=== PATIENT | female | born 1980 | race Caucasian/White ===

== ENCOUNTER 2018-04-10 00:32 | Emergency (ER) | payer OTHER, SELFPAY ==
--- NOTE | 2018-04-10 00:01 | US_ITS ---
STUDY: ULTRASOUND TRANSVAGINAL CLINICAL: Female, 37 years old. BLEEDING TECHNIQUE: Transvaginal COMPARISON: CT April 10, 2018 FINDINGS: Enlarged uterus measuring 10.6 x 8.3 x 4.2 cm. There is a 6.6 x 5.1 x 5.9 cm right uterine fibroid. Endometrium measuring 2.2 cm. There is nabothian cyst. Right ovary, measuring 4.0 x 3.4 x 2.0 cm. There is a 1.9 x 2.0 x 1.7 cm right ovarian simple appearing cyst. Normal left ovary, measuring 2.8 x 2.6 x 1.5 cm. There are multiple follicles without a dominant cyst. There is no free fluid in the pelvis. Polycystic ovary disease: No. US/Transvaginal Non- IMPRESSION: There is an enlarged fibroid uterus. There is a thickened endometrium. There is a right ovarian cyst. Electronically Signed: Palmira Owens MD at 9:36 EDT , Service support ,
--- NOTE | 2018-04-10 00:32 | DT_ITS ---
This patient was seen during an EMR downtime April 07, 2018 - April 14, 2018. This patient may have a combination of paper and electronic documentation or all paper documentation. All documentation is viewable within the e-chart portion of [employer] for each patient visit.
--- NOTE | 2018-04-10 01:20 | CT_ITS ---
STUDY: CT ABDOMEN AND PELVIS WITHOUT CONTRAST REASON FOR EXAM: Female, 37 years old. RLQ PAIN,NAUSEA,HEAVY BLEEDING WITH CLOTS PRIOR CHOLECYSTECTOMY RADIATION DOSAGE (If Supplied By Facility): CTDIvol = ( ) mGy, DLP = ( ) mGycm TECHNIQUE: Transaxial images were obtained from the dome of the diaphragm to the symphysis pubis without oral contrast, and without intravenous contrast. Sagittal and coronal images were reconstructed. Individualized dose optimization techniques were used for this CT. COMPARISON: None. FINDINGS: The visualized lung bases are unremarkable. The visualized portions of the heart are within normal limits. There is decreased attenuation of the liver consistent with steatosis. There are surgical clips in the gallbladder fossa consistent with a prior cholecystectomy. Normal spleen. Normal pancreas. Normal bilateral adrenal glands. Normal right kidney. Normal left kidney. Normal visualized stomach. Normal small intestine. Normal colon. The appendix is visualized and appears normal. Normal abdominal aorta. Normal inferior vena cava. Normal retroperitoneum. Normal urinary bladder. Normal abdominal wall. Normal osseous structures. CT/Abdomen/Pelvis without Cont IMPRESSION: There is decreased attenuation of the liver consistent with steatosis. Electronically Signed: Lorraine Gibson MD at 6:18 EDT Tel , Service support ,
[2018-04-12 12:00] LABS: Bacteria 0 SEEN /hpf (None Seen); Mucous, Urine 0 SEEN /hpf (<or=2+)
[2018-04-12 12:01] LABS: Color, Urine Yellow (Yellow); Glucose, Dipstick 250 mg/dl (Normal); Ketone-Dipstick 5 mg/dl (Negative); Leukocyte Esterase-Dipstick 25 /ul (Negative); Nitrite-Dipstick Negative (Negative); Occult Blood-Urine 250 /ul (Negative); Protein-Dipstick 100 mg/dl (Negative); Red Blood Cells-Urine 50-100 SEEN /hpf (0-5); Squamous Epithelial Cells - UA 10-25 SEEN /hpf (5-10); Urine Bilirubin Dipstick Negative (Negative); Urine Clarity Cloudy (Clear); Urine Urobilinogen 1 mg/dl (Normal); White Blood Cells 5-10 SEEN /hpf (0-5)
[2018-04-12 13:34] LABS: Anion Gap 8 (5-15); BUN 14 mg/dL (7-18); BUN/Creat Ratio 16.5 RATIO (10-20); Calcium,Total 8.2 mg/dL (8.5-10.1); Chloride 107 mmol/L (98-107); Creatinine, Serum 0.85 mg/dL (0.55-1.02); EST Glomerular Filtration Rate 81 mL/min (>60); Est Glom Filt Rate - Afr Amer 98 mL/min (>60); Glucose 122 mg/dL (74-106); Potassium 3.9 mmol/L (3.5-5.1); Pregnancy, Serum, hCG Quali. NEGATIVE Negative (0-9 Nonpreg); Sodium Level 141 mmol/L (136-145)
[2018-04-12 13:35] LABS: Absolute Lymphocyte Count 2.55 X10^3/ul (0.83-4.51); Absolute Neutrophil Count 6.5 X10^3/uL (2.0-7.7); Basophil# 0.02 X10^3/uL; Basophil% 0.2 % (0-1); Eosinophil# 0.77 X10^3/uL; Hematocrit 38.8 % (37-47); Hemoglobin 12.5 g/dl (12.0-15.0); Lymphocyte # 2.55 X10^3/ul (4.0); Lymphocyte % 23.1 % (19-41); Mean Corp Hgb Conc 32.2 g/gl (32-36); Mean Platelet Vol. 9.4 fl (6.2-12.0); Monocyte# 1.14 X10^3/uL; Monocyte% 10.3 % (0-10); Neutrophil # 6.54 X10^3/uL (2.7-7.7); Neutrophil % 59.2 % (47-70); POSITIVE COUNT NO; POSITIVE DIFFERENTIAL NO; POSITIVE MORPHOLOGY NO; Platelet Count 267 K/mm3 (150-450); RBC Distribution Width CV 13.4 % (11.6-14.6); RBC Distribution Width SD 42.6 fl (35.1-43.9); Red Blood Count 4.46 M/mm3 (4.2-5.4)
== END 2018-04-10 02:05 | disposition home or self-care (01) ==
LOC: ED 15:20
PROVIDERS: Emergency Provider Emergency Medicine; Family Provider Student in an Organized Health Care Education/Training Program; PCP Student in an Organized Health Care Education/Training Program
DX: N93.9 Abnormal uterine and vaginal bleeding, unspecified (principal); D25.9 Leiomyoma of uterus, unspecified; F32.9 Major depressive disorder, single episode, unspecified; E03.9 Hypothyroidism, unspecified; Z90.49 Acquired absence of other specified parts of digestive tract; Z79.899 Other long term (current) drug therapy; Z79.3 Long term (current) use of hormonal contraceptives
CPT/HCPCS: 74176; 76830; 80048; 81001; 84703; 85025; 93976; 96374; 96375; 99284; J7030; A4216; J2405

== ENCOUNTER 2022-12-28 19:34 | Emergency (ER) | payer OTHER, SELFPAY ==
[2022-12-28 19:35] VITALS: PULSE 98; RESP 16; TEMP 36.8; O2SAT 95
[2022-12-28 19:40] VITALS: BP 156/101; PULSE 95; RESP 19; TEMP 36.5; O2SAT 99
--- NOTE | 2022-12-28 20:14 | EKG12_ITS ---
Test Reason : CP Blood Pressure : / mmHG Vent. Rate : 093 BPM Atrial Rate : 093 BPM P-R Int : 166 ms QRS Dur : 092 ms QT Int : 360 ms P-R-T Axes : 052 -11 004 degrees QTc Int : 447 ms Sinus rhythm with Premature atrial complexes Incomplete right bundle branch block Inferior infarct , age undetermined , cannot be excluded Abnormal ECG Confirmed by JENNY PAREDES, JAY ([id number]), department editor GAUTAM RAMIREZ ([id number]) on 01/01/2023 9:04:33 AM Referred By: Confirmed By:JAY ALVARADO MD
--- NOTE | 2022-12-28 20:25 | RAD_ITS ---
INDICATION: chest pain EXAMINATION/TECHNIQUE: X-RAY - portable AP upright chest x-ray COMPARISON: None. FINDINGS: LINES/DEVICES: None. LUNGS: No consolidation, edema or effusion. No pneumothorax. MEDIASTINUM AND CARDIOVASCULAR STRUCTURES: Cardiac silhouette not enlarged. Central airways and mediastinal contour are unremarkable. BONES AND SOFT TISSUES: Unremarkable. RAD/Chest 1 View (Portable) IMPRESSION: No radiographic evidence of acute cardiopulmonary disease. Electronically Signed: Carter Cavanaugh MD at 21:07 EST ,
[2022-12-28] MEDS: Aspirin 81 MG TAB.CHEW 324 MG PO (20:29)
[2022-12-28 20:38] LABS: Absolute Lymphocyte Count 3.16 X10^3/uL (0.83-4.51); Absolute Neutrophil Count 5.9 X10^3/uL (2.0-7.7); Basophil# 0.09 X10^3/uL; Basophil% 0.8 % (0-1); Eosinophil# 0.58 X10^3/uL; Eosinophils% 5.5 % (0-5); Hematocrit 46.1 % (37-47); Hemoglobin 14.5 g/dL (12.0-15.0); Lymphocyte # 3.16 X10^3/ul (0.83-4.51); Lymphocyte % 29.8 % (19-41); Mean Corp Hgb Conc 31.5 g/dL (32-36); Mean Corpuscular Hgb 28.3 pg (27.0-32.0); Mean Platelet Vol. 10.1 fl (6.2-12.0); Monocyte% 7.5 % (0-10); NRBC Flagged by Analyzer 0 % (0-5); Neutrophil # 5.88 X10^3/uL (2.7-7.7); Neutrophil % 55.4 % (47-70); POSITIVE COUNT YES; Platelet Count 359 K/mm3 (150-450); RBC Distribution Width CV 12.9 % (11.6-14.6); RBC Distribution Width SD 42.1 fl (35.1-43.9); Red Blood Count 5.12 M/mm3 (4.2-5.4); White Blood Count 10.6 K/mm3 (4.4-11.0)
[2022-12-28 20:41] VITALS: BP 134/98; PULSE 90; RESP 18; O2SAT 97
[2022-12-28 20:42] VITALS: BP 134/98; PULSE 91
[2022-12-28] MEDS: Nitroglycerin SL (ED/IMG/CATH) 0.4 MG TABLET SL (20:42)
[2022-12-28 20:57] VITALS: BMI 66.8
[2022-12-28 20:58] LABS: Anion Gap 6 (5-15); BUN 14 mg/dL (7-18); BUN/Creat Ratio 15.5 RATIO (10-20); Calcium,Total 9.3 mg/dL (8.5-10.1); Chloride 109 mmol/L (98-107); EST Glomerular Filtration Rate 73 mL/min (>60); Est Glom Filt Rate - Afr Amer 89 mL/min (>60); Glucose 149 mg/dL (74-106); Potassium 4.4 mmol/L (3.5-5.1); Sodium Level 140 mmol/L (136-145); Troponin-I HS (w/2H Reflex) 6 pg/mL (3.0-54.0)
--- NOTE | 2022-12-28 22:07 | EDS_ITS ---
HPI History of Present Illness Chief Complaint: Chest Pain Informant: patient Onset/Context/Timing Onset: Today Activity at onset: sudden Timing: Intermittent Quality: Positive for Pressure Location: Substernal Worsened By: Nothing Relieved By: Nothing Associated Symptoms: Positive for Nausea, Dyspnea, Cough and Palpitations; Negative for Vomiting, Diaphoresis, Fever, Lightheadedness or Acid Reflux Narrative Narrative: Patient presents with chest pain that began tonight. Patient states it began rather suddenly. Patient states it has been intermittent since it began. Patient describes it as a tightness over the substernal area. Patient states nothing makes it better nothing makes it worse. Patient admits to some shortness of breath and cough with it. Patient admits to nausea but denies any vomiting. Patient denies any diaphoresis. Patient denies any fevers or chills. Patient denies any lightheadedness or dizziness. Patient states she did feel some palpitations with this. CVD Risk Factors: Negative for Hypertension, Diabetes, Hypercholesterolemia, Family History 1' </=55 or Smoking PE Risk Factors: Negative for Recent Travel/Surgery, Recent Immobilization, Prio r DVT or PE, Cancer or OCP + Smoking + >/=35 [facility] Medical History (Updated 12/28/22 @ 23:[address] David Rm DO) Anxiety Depression Hypothyroid Home Medications aspirin 81 mg tablet,delayed release 81 mg PO DAILY 12/28/22 [History Last Taken Unknown] bupropion HCl 100 mg tablet 100 mg PO BID 12/28/22 [History Last Taken Unknown] escitalopram oxalate 20 mg tablet 20 mg PO DAILY 12/28/22 [History Last Taken Unknown] levothyroxine 175 mcg tablet 175 mcg PO DAILY 12/28/22 [History Last Taken Unknown] magnesium glycinate 100 mg tablet 500 mg PO DAILY 12/28/22 [History Last Taken Unknown] pantoprazole 40 mg tablet,delayed release 40 mg PO DAILY 12/28/22 [History Last Taken Unknown] Allergy/AdvReac Type Severity Reaction Status Date / Time No Known Allergies Allergy Verified 12/28/22 19:41 Surgical History (Updated 12/28/22 @ 22:[address] David Rm DO) Hx of cholecystectomy Social History Smoking Status: Never smoker ROS ROS ED Constitutional Constitutional ED: Denies chills or fever(s) Eyes Eyes: Denies blurry vision or change in vision ENT ENT ED: Denies rhinorrhea or sore throat Cardiovascular Cardiovascular: Reports chest pain and palpitations Respiratory/Chest Respiratory/Chest: Reports cough and dyspnea Gastrointestinal Gastrointestinal: Reports nausea; Denies abdominal pain or vomiting Genitourinary Genitourinary ED: Denies dysuria or hematuria Musculoskeletal Musculoskeletal: Reports back pain; Denies neck pain Integumentary Denies abscess or rash Neurologic Neurologic: Reports headache(s); Denies weakness Allergic/Immunologic Allergic/Immunologic ED: Denies mouth swelling or urticaria EXAM Physical Exam Const Vital Signs: 12/28/22 19:35 12/28/22 19:40 12/28/22 20:40 Temperature 98.2 F 97.7 F L Temperature Source Temporal Temporal Pulse Rate 98 95 Respiratory Rate 16 19 H Blood Pressure 156/101 H Blood Pressure Mean 119 Pulse Ox 95 99 Oxygen Delivery Method Room Air Room Air Room Air 12/28/22 20:41 12/28/22 20:42 Temperature Temperature Source Pulse Rate 90 91 Respiratory Rate 18 Blood Pressure 134/98 H 134/98 H Blood Pressure Mean 110 Pulse Ox 97 Oxygen Delivery Method Room Air Positive well nourished, well developed and obese General Appearance ED: well developed and NAD Nutritional Appearance: obese HEENT normocephalic and atraumatic Eyes PERRL and EOMs intact bilaterally Neck supple and no JVD Chest Wall palpation of chest normal Resp normal respiratory effort and clear to auscultation bilaterally Effort and Inspection: Negative for respiratory distress Cardio regular rate, regular rhythm and no murmurs GI normal to inspection, nondistended, normoactive bowel sounds, soft to palpation, non-tender and non-distended Extremity normal to inspection General Extremety ED: Negative for edema or tenderness General Extremity: Negative for edema Neuro oriented x3, CN's II-XII intact bilaterally and no sensory deficits noted Sensorium / Orientation: awake and alert Motor Exam: strength 5/5 throughout Psych mental status grossly normal Heart Score History: Slightly/Non-Suspicious ECG: Nonspecific Repolarization Age: </= 45 years Risk Factors: No Risk Factors Troponin: </= Normal Limit Score: 1 MDM MDM MDM Narrative Medical decision making narrative: Differential diagnosis includes cardiac ischemia, cardiac dysrhythmia, pneumonia, asthma, anxiety, pneumothorax, and hypertensive urgency. Patient is PERC negative and has no PE risk factors. Therefore I do not feel this is from a pulmonary embolism. EKG will be obtained to assess for cardiac dysrhythmia and cardiac ischemia. CBC will be obtained to assess for leukocytosis and anemia. Basic metabolic profile will be obtained to assess for electrolyte abnormality and renal function. High-sensitivity troponin will be obtained to assess for cardiac ischemia. Chest x-ray will be obtained to assess for pneumonia and pneumothorax. Lab Data Attestation: I reviewed the patient's lab results. Lab results narrative: CBC was reviewed and was within normal limits. Basic metabolic profile was reviewed. Glucose was mildly elevated at 149. Anion gap was normal. CO2 was n ormal. High-sensitivity troponin was reviewed and was normal. 2-hour repeat high-sensitivity troponin was reviewed and was normal. Labs: Laboratory Results - last 24 hr 12/28/22 12/28/22 12/28/22 20:30 20:30 22:54 WBC 10.6 RBC 5.12 Hgb 14.5 Hct 46.1 MCV 90.0 MCH 28.3 MCHC 31.5 L RDW Std Deviation 42.1 RDW Coeff of Tamera 12.9 Plt Count 359 MPV 10.1 Immature Gran % (Auto) 1.000 H Neut % (Auto) 55.4 Lymph % (Auto) 29.8 [place] % (Auto) 7.5 Eos % (Auto) 5.5 H Baso % (Auto) 0.8 Absolute Neuts (auto) 5.9 Absolute Lymphs (auto) 3.16 Nucleated RBC % 0 Sodium 140 Potassium 4.4 Chloride 109 H Carbon Dioxide 25.0 Anion Gap 6 BUN 14 Creatinine 0.90 Est GFR (MDRD) Af Amer 89 Est GFR (MDRD) Non-Af 73 BUN/Creatinine Ratio 15.5 Glucose 149 H Calcium 9.3 Troponin I High Sens 6 4 Radiography Chest X-Ray - ED: 1 View, Read by ED Physician, Read by Radiologist and No Acute Disease Diagnostic Testing: Clinical Impression(s) from Imaging Studies Chest X-Ray 12/28/22 20:25 IMPRESSION: No radiographic evidence of acute cardiopulmonary disease. Electronically Signed: Carter Cavanaugh MD at 21:07 EST , Portable 1 view chest x-ray was obtained. On my independent interpretation, waldo g euceda are clear. There is normal cardiac silhouette. Bony thorax is normal. There is no acute process noted. Radiologist also interpreted the x-ray and agrees. EKG Initial EKG: Attestation: I personally reviewed and interpreted this EKG as follows: Interpretation: Sinus Rhythm (With occasional PACs with a rate of 93) and No Acute Injury Pattern Comments: EKG was obtained. On my independent interpretation, it showed a normal sinus rhythm with occasional PACs with a rate of 93. NM interval, QRS interval, and QTc intervals were all normal. [place] was normal. There is an incomplete right bundle branch block pattern. There are no acute ST or T wave changes. Prior EKG tracings: not available for review Prior: No Prior Treatment and Re-Evaluation Narrative: Patient was given aspirin here. Patient is feeling better on reevaluation. Patient was advised of her findings. Patient has a HEART score of 1. Patient was advised that this is low risk for acute cardiac event. Patient was instructed to follow-up with her primary care physician in 5 to 7 days for further evaluation. Patient understands and is agreeable with the plan. All questions were answered. Discharge Plan Triage Chief Complaint: Chest Pain ED Provider: David Rm Dx/Rx/DC Orders Clinical Impression: Chest pain, Morbid obesity with BMI of 60.0-69.9, adult Instructions: ED Chest Pain, Uncertain Cause Prescriptions: No Action levothyroxine 175 mcg tablet 175 mcg PO DAILY Label Comments: take 1 tablet by mouth daily 5 days A WEEK, AND 2 TABLETS ON DAYS A WEEK Rx Instructions: 2 tabs on sundays and wednesdays aspirin [Aspir-81] 81 mg Tablet,Delayed Release (Dr/Ec) 81 mg PO DAILY bupropion HCl 100 mg tablet 100 mg PO BID pantoprazole 40 mg tablet,delayed release (DR/EC) 40 mg PO DAILY escitalopram oxalate 20 mg tablet 20 mg PO DAILY Label Comments: take 1 tablet by mouth once daily magnesium glycinate 100 mg Tablet 500 mg PO DAILY Primary Care Provider: Kartik Elliott Referrals: Kartik Elliott, [Primary Care Provider] - 3-5 Days Disposition Disposition: Home, Self Care
[2022-12-28 22:34] LABS: Reflex Troponin-HS? (from REC) Y
[2022-12-28 23:10] VITALS: BP 126/81; PULSE 88; RESP 21; O2SAT 96
[2022-12-28 23:27] LABS: Troponin-I HS 4 pg/mL (3.0-54.0)
== END 2022-12-29 | disposition home or self-care (01) ==
PROVIDERS: Emergency Provider Emergency Medicine; PCP Student in an Organized Health Care Education/Training Program; Visit Provider Emergency Medicine
DX: R07.9 Chest pain, unspecified (principal); E66.01 Morbid (severe) obesity due to excess calories; Z68.44 Body mass index [BMI] 60.0-69.9, adult; Z79.82 Long term (current) use of aspirin; Z79.899 Other long term (current) drug therapy
CPT/HCPCS: 71045; 80048; 84484; 85025; 93005; 99283; A4216